=== PATIENT | female | born 1985 | race Two or more races ===

== ENCOUNTER 2017-10-24 08:47 | Emergency (ER) | payer OTHER, MEDICAID | END 2017-10-24 10:25 | disposition home or self-care (01) | LOC: FTE 08:47 | DX: J32.9 Chronic sinusitis, unspecified (principal); J45.909 Unspecified asthma, uncomplicated | CPT/HCPCS: 99283; Z7502 ==

== ENCOUNTER 2017-11-14 11:43 | Emergency (ER) | payer OTHER ==
[2017-11-14] MEDS: DEXAMETHASONE 10 MG/ML 1 ML INJ IM (12:16)
[2017-11-14] MEDS: ALBUTEROL 0.083% (NEB) 2.5 MG/3 ML AMP HHN (12:30)
[2017-11-14] MEDS: IPRATROPIUM (NEB) 0.5 MG/2.5 ML AMP HHN (12:30)
== END 2017-11-14 13:10 | disposition home or self-care (01) ==
LOC: FTE 11:43
DX: R05 Cough (principal); J45.909 Unspecified asthma, uncomplicated
CPT/HCPCS: 71045; 94664; 96372; 99284-25

== ENCOUNTER 2018-07-25 08:16 | Emergency (ER) | payer OTHER | END 2018-07-25 08:59 | disposition home or self-care (01) | LOC: FTE 08:16 | DX: R05 Cough (principal); J45.909 Unspecified asthma, uncomplicated | CPT/HCPCS: 99283; Z7502 ==